=== PATIENT | male | born 1995 | race Caucasian/White ===

== ENCOUNTER 2016-12-13 18:10 | Emergency (ER) | payer MEDICAID ==
[2016-12-13] MEDS ORDERED: KETOROLAC 60 MG/2 ML VIAL IM STA (18:43)
--- NOTE | 2016-12-13 18:45 | ED Physician Documentation ---
PD HPI BACK INJURY - Stated complaint Stated Complaint: BACK PX - History obtained from History obtained from: Patient - Additional information Additional information: Sudden onset left-sided low back pain today while lifting a couch at home with radiation into the buttock but no aassociated weakness, numbness, or tingling or saddle anesthesia or incontinence or fever. Review of Systems Constitutional: denies: Fever, Chills Cardiac: denies: Chest pain / pressure, Palpitations Respiratory: denies: Dyspnea, Cough GI: denies: Abdominal Pain, Nausea PD PAST MEDICAL HISTORY - Past Medical History Cardiovascular: None Respiratory: None Neuro: None Endocrine/Autoimmune: None GI: None : None HEENT: None Psych: ADD/ADHD Musculoskeletal: None Derm: None - Past Surgical History Past Surgical History: No - Present Medications Home Medications: Ambulatory Orders Medication Instructions Recorded Confirmed Cyclobenzaprine [Flexeril] 10 mg PO TID PRN #20 tablet 12/13/16 Meloxicam [Mobic] 7.5 mg PO BIDWM PRN #15 tablet 12/13/16 - Allergies Allergies/Adverse Reactions: Allergies Allergy/AdvReac Type Severity Reaction Status Date / Time No Known Drug Allergies Allergy Verified 12/13/16 18:16 - Social History Does the pt smoke?: Yes Smoking Status: Current every day smoker Does the pt drink ETOH?: No Does the pt have substance abuse?: No - Immunizations Immunizations are current?: Yes - POLST Patient has POLST: No PD ED PE NORMAL - Vitals Vital signs reviewed: Yes - General General: Alert and oriented X 3, No acute distress - Abdomen Abdomen: Normal bowel sounds, Soft, Non tender - Back Back: No spinal TTP, Other (Tender to the left paralumbar musculature he winces with motion. He does have mildly diminished sensation in the left L4 distribution but he is equal Achilles and patellar reflexes and strength throughout both legs.) - Derm Derm: Normal color, Warm and dry Results - Vitals Vitals: Vital Signs - 24 hr 12/13/16 18:15 Temperature 36.4 C L Heart Rate 105 H Respiratory 20 Rate Blood Pressure 136/88 H O2 Saturation 97 Oxygen O2 Source Room air PD MEDICAL DECISION MAKING - ED course ED course: Spinal epidural abscess was considered in this patient. The patient has no fever , is not diabetic, has no spinal tenderness, does not use IV drugs, and no bilateral neurologic symptoms. Therefore, spinal epidural abscess is considered exceedingly unlikely. Departure - Departure Disposition: 01 Home, Self Care Clinical Impression: Back pain Qualifiers: Back pain location: low back pain Chronicity: acute Back pain laterality: left Sciatica presence: with sciatica Sciatica laterality: sciatica of left side Qualified Code(s): M54.42 - Lumbago with sciatica, left side Condition: Good Record reviewed to determine appropriate education?: Yes Instructions: ED Low Back Pain Injury Prescriptions: Cyclobenzaprine [Flexeril] 10 mg PO TID PRN #20 tablet PRN Reason: Pain Meloxicam [Mobic] 7.5 mg PO BIDWM PRN #15 tablet PRN Reason: Pain Comments: Call your doctor to arrange a follow up appointment. Make the next available appointment. In the interim return anytime if worse or if new symptoms develop. Your blood pressure was elevated today on check in to the emergency department. This does not mean that you have hypertension, it is a common phenomenon to check into the emergency department and have elevated blood pressure. I recommend that you see your primary care physician within the week to have it rechecked when you're feeling better. Forms: Activity restrictions
[2016-12-13] MEDS ORDERED: KETOROLAC 60 MG/2 ML VIAL ONE (18:50)
[2016-12-13] MEDS ORDERED: MELOXICAM 7.5 MG TABLET PO STA (18:55)
[2016-12-13] MEDS ORDERED: CYCLOBENZAPRINE 10 MG TABLET PO STA (18:55)
[2016-12-13] MEDS ORDERED: CYCLOBENZAPRINE 10 MG TABLET PO ONE (19:01)
[2016-12-13 19:25] VITALS: BP 115/71
== END 2016-12-13 19:36 | disposition home or self-care (01) ==
LOC: ED 18:10
DX: M54.42 Lumbago with sciatica, left side (principal); X50.0XXA Overexertion from strenuous movement or load, initial encounter; Y92.019 Unspecified place in single-family (private) house as the place of occurrence of the external cause; R03.0 Elevated blood-pressure reading, without diagnosis of hypertension; F17.200 Nicotine dependence, unspecified, uncomplicated
CPT/HCPCS: 96372; 99283; A9270

== ENCOUNTER 2017-04-19 11:59 | Emergency (ER) | payer MEDICAID ==
[2017-04-19 12:21] VITALS: BP 118/72
[2017-04-19] MEDS ORDERED: KETOROLAC 60 MG/2 ML VIAL IM STA (13:00)
--- NOTE | 2017-04-19 13:04 | ED Physician Documentation ---
History of Present Illness - Stated complaint Stated Complaint: LEFT SHOULDER PAIN - Chief complaint Chief Complaint: Ext Problem - History obtained from History obtained from: Patient - History of Present Illness Timing: How many weeks ago (several) Pain level max: 5 Pain level now: 5 Improved by: rest Worsened by: movement, lifting - Additonal information Additional information: Patient is a 22-year-old male with left shoulder pain. He states he works at the [employer]. States the pain is worse with movement and better with rest. Has not taken anything for the pain other than one muscle relaxant last night, does not know what the name of this is. Does not recall any specific injuries. He has tried warm showers and Epsom salts which do help for a short period of time. Review of Systems Constitutional: denies: Fever, Chills Throat: denies: Sore throat Cardiac: denies: Chest pain / pressure Respiratory: denies: Cough GI: denies: Abdominal Pain, Nausea, Vomiting, Diarrhea Skin: denies: Rash Musculoskeletal: denies: Neck pain, Back pain Neurologic: denies: Focal weakness, Numbness, Headache PD PAST MEDICAL HISTORY - Past Medical History Past Medical History: Yes Cardiovascular: None Respiratory: None Neuro: None Endocrine/Autoimmune: None GI: None : None HEENT: None Psych: ADD/ADHD Musculoskeletal: None Derm: None - Past Surgical History Past Surgical History: No - Present Medications Home Medications: Ambulatory Orders Medication Instructions Recorded Confirmed Meloxicam [Mobic] 7.5 mg PO BIDWM PRN #15 tablet 12/13/16 04/19/17 Cyclobenzaprine [Flexeril] 10 mg PO TID PRN #20 tablet 04/19/17 Meloxicam [Mobic] 7.5 mg PO BID PRN #20 tablet 04/19/17 - Allergies Allergies/Adverse Reactions: Allergies Allergy/AdvReac Type Severity Reaction Status Date / Time No Known Drug Allergies Allergy Verified 12/13/16 18:16 - Social History Does the pt smoke?: Yes Smoking Status: Current every day smoker Does the pt drink ETOH?: Yes Does the pt have substance abuse?: No - Immunizations Immunizations are current?: Yes - POLST Patient has POLST: No PD ED PE NORMAL - Vitals Vital signs reviewed: Yes - General General: Alert and oriented X 3, No acute distress - Derm Derm: Warm and dry - Extremities Extremities: Other (L shoulder - TTP over the posterior aspect of the glenohumeral joint, pain occurs at 90degrees abduction and with internal rotation. NVI) - Neuro Neuro: Alert and oriented X 3 Results - Vitals Vitals: Vital Signs - 24 hr 04/19/17 12:16 Temperature 37.1 C Heart Rate 88 Respiratory 16 Rate Blood Pressure 118/72 O2 Saturation 97 Oxygen O2 Source Room air PD MEDICAL DECISION MAKING - ED course Complexity details: considered differential, d/w patient ED course: Patient is a 22-year-old male who presents to the emergency department with a left shoulder pain ongoing for the past several weeks. Possible rotator cuff injury? Possible strain? Will place on anti-inflammatory medications and see how he progresses. We will have him follow-up with his doctor for further evaluation and care. Neurovascularly intact. No evidence of infection or septic joint. Patient counseled regarding signs and symptoms for which I believe and urgent re-evaluation would be necessary. Patient with good understanding of and agreement to plan and is comfortable going home at this time This document was made in part using voice recognition software. While efforts are made to proofread this document, sound alike and grammatical errors may occur. Departure - Departure Disposition: 01 Home, Self Care Clinical Impression: Shoulder strain Qualifiers: Encounter type: initial encounter Laterality: left Qualified Code(s): S46.912A - Strain of unspecified muscle, fascia and tendon at shoulder and upper arm level, left arm, initial encounter Condition: Good Instructions: ED Torn Rotator Cuff Follow-Up: your,doctor in 1 week [Other] Prescriptions: Cyclobenzaprine [Flexeril] 10 mg PO TID PRN #20 tablet PRN Reason: Spasms Meloxicam [Mobic] 7.5 mg PO BID PRN #20 tablet PRN Reason: pain Comments: Return if you worsen. Do not drive or operate heavy machinery while taking the Flexeril. You should also follow-up with your doctor as you may need to have physical therapy on the shoulder. Forms: Activity restrictions Discharge Date/Time: 04/19/17 13:44
[2017-04-19] MEDS ORDERED: KETOROLAC 60 MG/2 ML VIAL ONE (13:17)
== END 2017-04-19 13:44 | disposition home or self-care (01) ==
LOC: ED 11:59
DX: S46.912A Strain of unspecified muscle, fascia and tendon at shoulder and upper arm level, left arm, initial encounter (principal); X50.0XXA Overexertion from strenuous movement or load, initial encounter; Y92.89 Other specified places as the place of occurrence of the external cause; Y99.0 Civilian activity done for income or pay; F17.200 Nicotine dependence, unspecified, uncomplicated
CPT/HCPCS: 96372; 99282; 99283

== ENCOUNTER 2017-07-23 12:32 | Emergency (ER) | payer MEDICAID ==
--- NOTE | 2017-07-23 13:31 | ED Physician Documentation ---
PD HPI HEENT - Stated complaint Stated Complaint: SORE THROAT/BODY ACHES - Chief complaint Chief Complaint: Heent - History obtained from History obtained from: Patient - History of Present Illness Timing - onset: Other (Sore throat since last night with mild congestion and cough but the throat is the worst and he feels like he might have strep again which she has had many times before.) Review of Systems Constitutional: denies: Fever, Chills Nose: reports: Rhinorrhea / runny nose, Congestion Throat: reports: Sore throat PD PAST MEDICAL HISTORY - Past Medical History Past Medical History: No Cardiovascular: None Respiratory: None Neuro: None Endocrine/Autoimmune: None GI: None : None HEENT: None Psych: ADD/ADHD Musculoskeletal: None Derm: None - Past Surgical History Past Surgical History: No - Present Medications Home Medications: Ambulatory Orders Medication Instructions Recorded Confirmed Meloxicam [Mobic] 7.5 mg PO BIDWM PRN #15 tablet 12/13/16 04/19/17 Cyclobenzaprine [Flexeril] 10 mg PO TID PRN #20 tablet 04/19/17 Meloxicam [Mobic] 7.5 mg PO BID PRN #20 tablet 04/19/17 Ibuprofen [Motrin] 800 mg PO Q8H PRN #30 tablet 07/23/17 - Allergies Allergies/Adverse Reactions: Allergies Allergy/AdvReac Type Severity Reaction Status Date / Time No Known Drug Allergies Allergy Verified 12/13/16 18:16 - Social History Does the pt smoke?: Yes Smoking Status: Current every day smoker Does the pt drink ETOH?: Yes Does the pt have substance abuse?: No - Immunizations Immunizations are current?: Yes - POLST Patient has POLST: No PD ED PE NORMAL - Vitals Vital signs reviewed: Yes - General General: Alert and oriented X 3, No acute distress - HEENT HEENT: PERRL, EOMI, Other (Large tonsils with mild exudates and halitosis) - Neck Neck: Supple, no meningeal sign, No bony TTP - Neuro Neuro: Alert and oriented X 3 - Psych Psych: Normal mood, Normal affect Results - Vitals Vitals: Vital Signs - 24 hr 07/23/17 12:38 Temperature 36.3 C L Heart Rate 77 Respiratory 18 Rate Blood Pressure 118/71 O2 Saturation 97 Oxygen O2 Source Room air - Labs Labs: Laboratory Tests 07/23/17 13:31 Group A Strep Rapid Negative Departure - Departure Disposition: Home, Self Care Clinical Impression: Viral pharyngitis Condition: Good Record reviewed to determine appropriate education?: Yes Instructions: ED Pharyngitis Viral Report Pending Prescriptions: Ibuprofen [Motrin] 800 mg PO Q8H PRN #30 tablet PRN Reason: PAIN &/OR FEVER Comments: Follow-up with your doctor in 1 week if not better. Return if worse or if new symptoms develop.
[2017-07-23 14:34] VITALS: BP 138/97
== END 2017-07-23 14:29 | disposition home or self-care (01) ==
LOC: ED 12:32
DX: J02.8 Acute pharyngitis due to other specified organisms (principal); B97.89 Other viral agents as the cause of diseases classified elsewhere
CPT/HCPCS: 87070; 87430; 99283

== ENCOUNTER 2018-01-02 00:22 | Emergency (ER) | payer MEDICAID ==
[2018-01-02 00:29] VITALS: BP 129/71
--- NOTE | 2018-01-02 01:16 | ED Physician Documentation ---
History of Present Illness - Stated complaint Stated Complaint: FEVER - Chief complaint Chief Complaint: General - History obtained from History obtained from: Patient - History of Present Illness Timing: How many days ago (3-4) Improved by: no ameliorating factors Worsened by: no exacerbating factors - Additonal information Additional information: c/o 2-3 days of body aches, sinus and chest congestion, productive cough. Review of Systems Constitutional: reports: Chills, Myalgias, Fatigue, Sweats. denies: Fever Ears: denies: Ear pain Nose: reports: Congestion, Sinus pressure / pain Throat: denies: Sore throat Respiratory: reports: Cough. denies: Dyspnea GI: denies: Nausea, Vomiting PD PAST MEDICAL HISTORY - Past Medical History Past Medical History: Yes Cardiovascular: None Respiratory: None Endocrine/Autoimmune: None GI: None : None HEENT: None Psych: ADD/ADHD Musculoskeletal: None Derm: None - Past Surgical History Past Surgical History: No - Present Medications Home Medications: Ambulatory Orders Medication Instructions Recorded Confirmed Meloxicam [Mobic] 7.5 mg PO BIDWM PRN #15 tablet 12/13/16 04/19/17 Cyclobenzaprine [Flexeril] 10 mg PO TID PRN #20 tablet 04/19/17 Meloxicam [Mobic] 7.5 mg PO BID PRN #20 tablet 04/19/17 Ibuprofen [Motrin] 800 mg PO Q8H PRN #30 tablet 07/23/17 Amoxicillin 500 mg PO TID #20 capsule 01/02/18 - Allergies Allergies/Adverse Reactions: Allergies Allergy/AdvReac Type Severity Reaction Status Date / Time No Known Drug Allergies Allergy Verified 01/02/18 00:29 - Social History Does the pt smoke?: Yes Smoking Status: Current every day smoker Does the pt drink ETOH?: Yes Does the pt have substance abuse?: No - Immunizations Immunizations are current?: Yes - POLST Patient has POLST: No PD ED PE NORMAL - Vitals Vital signs reviewed: Yes - General General: Alert and oriented X 3, No acute distress, Well developed/nourished - HEENT HEENT: Ears normal, Moist mucous membranes, Pharynx benign - Neck Neck: Supple, no meningeal sign - Cardiac Cardiac: RRR, No murmur - Respiratory Respiratory: No respiratory distress, Other (rhonchi JOE and RLL) Results - Vitals Vitals: Oxygen O2 Source Room air PD MEDICAL DECISION MAKING - ED course Complexity details: considered differential, d/w patient - Sepsis Event Vital Signs: Oxygen O2 Source Room air Departure - Departure Disposition: 01 Home, Self Care Clinical Impression: Sinusitis, Bronchitis Condition: Good Instructions: ED Upper Resp Infec Abx Tx, ED Sinusitis Abx Tx Follow-Up: Carrington Thomas MD [Emergency Provider] - Prescriptions: Amoxicillin 500 mg PO TID #20 capsule Forms: Activity restrictions Discharge Date/Time: 01/02/18 01:47
[2018-01-02] MEDS ORDERED: AMOXICILLIN 250 MG CAPSULE PO STA (01:30)
[2018-01-02] MEDS ORDERED: IBUPROFEN 600 MG TABLET PO STA (01:31)
== END 2018-01-02 01:47 | disposition home or self-care (01) ==
LOC: ED 00:22
DX: J32.9 Chronic sinusitis, unspecified (principal); J40 Bronchitis, not specified as acute or chronic; F17.200 Nicotine dependence, unspecified, uncomplicated
CPT/HCPCS: 99283; A9270

== ENCOUNTER 2018-09-03 08:21 | Emergency (ER) | payer MEDICAID ==
[2018-09-03] MEDS ORDERED: ACETAMINOPHEN 500 MG TABLET PO STA (08:29)
[2018-09-03] MEDS ORDERED: ONDANSETRON ODT 4 MG TABLET TL STA (08:29)
[2018-09-03] MEDS ORDERED: NAPROXEN 250 MG TABLET PO STA (08:29)
[2018-09-03 08:30] VITALS: BP 122/77
--- NOTE | 2018-09-03 08:53 | ED Physician Documentation ---
History of Present Illness - Stated complaint Stated Complaint: BODY ACHES/SORE THROAT - Chief complaint Chief Complaint: Fever - Additonal information Additional information: 23-year-old male presents the emergency department with 4 days of nasal congestion, cough, body aches, fever and general fatigue. The patient's symptoms improve with Motrin but the patient has not used any medications today. The patient denies shortness of breath or abdominal pain. No other associated symptoms. The patient did not have his influenza vaccine this year. No other associated symptoms Review of Systems Constitutional: reports: Fever, Chills, Myalgias, Fatigue Eyes: denies: Discharge Ears: denies: Ear pain Nose: reports: Rhinorrhea / runny nose, Congestion Throat: reports: Sore throat Cardiac: denies: Chest pain / pressure Respiratory: reports: Cough GI: reports: Nausea. denies: Abdominal Pain Skin: denies: Rash Immunocompromised: denies: Chemotherapy PD PAST MEDICAL HISTORY - Past Medical History Past Medical History: Yes Cardiovascular: None Respiratory: None Endocrine/Autoimmune: None GI: None : None HEENT: None Psych: ADD/ADHD Musculoskeletal: None Derm: None - Past Surgical History Past Surgical History: No - Present Medications Home Medications: Ambulatory Orders Medication Instructions Recorded Confirmed No Known Home Medications 09/03/18 09/03/18 - Allergies Allergies/Adverse Reactions: Allergies Allergy/AdvReac Type Severity Reaction Status Date / Time No Known Drug Allergies Allergy Verified 09/03/18 08:27 - Social History Does the pt smoke?: Yes Smoking Status: Current every day smoker Does the pt drink ETOH?: No Does the pt have substance abuse?: No - Immunizations Immunizations are current?: Yes - POLST Patient has POLST: No PD ED PE NORMAL - General General: Alert and oriented X 3, No acute distress - HEENT HEENT: Atraumatic, PERRL, EOMI, Ears normal - Cardiac Cardiac: RRR (Tachycardia, secondary to the viral process), Strong equal pulses - Respiratory Respiratory: No respiratory distress, Clear bilaterally - Abdomen Abdomen: Soft, Non tender - Derm Derm: Normal color - Extremities Extremities: No deformity - Neuro Neuro: Alert and oriented X 3, Normal speech - Psych Psych: Normal mood Results - Vitals Vitals: Vital Signs - 24 hr 09/03/18 08:24 Temperature 37.6 C H Heart Rate 120 H Respiratory 20 Rate Blood Pressure 122/77 O2 Saturation 99 Oxygen O2 Source Room air - Labs Labs: Laboratory Tests 09/03/18 09/03/18 07:40 07:40 Influenza A (Rapid) Negative Influenza B (Rapid) Negative Group A Strep Rapid Negative PD MEDICAL DECISION MAKING - ED course ED course: On reevaluation the patient is resting comfortably, the patient on physical exam has no evidence of sepsis, his lungs are clear and has no clinical evidence of pneumonia, acute otitis media or strep pharyngitis and currently his symptoms represent a viral process. The patient appears appropriate for discharge and ongoing outpatient management. I discussed warning signs and recommended returning to the emergency department immediately for any worsening or any concerns Departure - Departure Disposition: 01 Home, Self Care Clinical Impression: Influenza-like illness Condition: Good Instructions: ED Flu Comments: Please Follow-up with primary care for recheck and reevaluation Please return to the emergency department immediately for any worsening or any concerns
== END 2018-09-03 09:23 | disposition home or self-care (01) ==
LOC: ED 08:21
DX: J11.1 Influenza due to unidentified influenza virus with other respiratory manifestations (principal); F17.200 Nicotine dependence, unspecified, uncomplicated
CPT/HCPCS: 87070; 87275; 87276; 87430; 99282; 99283; A9270; Q0162